=== PATIENT | female | born 1930 | race American Indian/Alaskan Native ===

== ENCOUNTER 2017-12-29 04:06 | Emergency (ER) | payer MEDICARE ==
--- NOTE | 2017-12-29 05:22 | Cat Scan Report ---
FINAL REPORT EXAM: CT HEAD/BRAIN WO CON HISTORY: injury TECHNIQUE: CT imaging is acquired through the brain without contrast. Transaxial reformations are provided. PRIORS: None. FINDINGS: A right frontal scalp hematoma is present without skull fracture. There is a right frontoparietal subdural hemorrhage, which measures up to 3 millimeters in thickness as measured at the level of the foramina of [place]. There is 2 millimeters of midline shift. No transtentorial or tonsillar herniation. Ventricles and CSF spaces are otherwise proportionately enlarged, consistent with parenchymal atrophy. Scattered deep and subcortical white matter hypodense foci are confluent in some areas and are compatible with microvascular angiopathy. No skull fracture. Hyperostosis frontalis. Mastoid air cells are clear. Please see CT face of the same date. IMPRESSION: Right frontoparietal subdural hematoma measures up to 3 millimeters in thickness at the level of the foramina of [place]. There is 1-2 millimeters of right to left midline shift. No transtentorial or tonsillar herniation. Dr. Carter discussed findings of intracranial hemorrhage and C7 fracture with Oliverio Lopez RN at 0415 central Time on 12/29/2017 immediately following the examination.
--- NOTE | 2017-12-29 05:27 | Cat Scan Report ---
FINAL REPORT EXAM: CT CERVICAL SPINE WO CON HISTORY: injury TECHNIQUE: CT imaging is acquired through the cervical spine without contrast. Transaxial, coronal and sagittal reformations are provided. PRIORS: None. FINDINGS: Diffuse demineralization. A fracture extends through the anterior and posterior endplates of C7 on sagittal series 201, images 31-34. There is minimal less than 25 percent vertebral body height loss at this level. No posterior element involvement. No retropulsion of fragments. Cervical lordosis is intact. Remaining vertebral body heights are preserved. There is diffuse at least moderate sequela of disc degeneration throughout the cervical spine. Degenerative ankylosis of the C3-C4 facet joints. Atlanto dens interval and the odontoid process are intact. No perivertebral soft tissue swelling or hematoma identified. Limited soft tissue exam of the visualized neck is unremarkable for carotid calcifications. IMPRESSION: Minimally displaced/depressed C7 fracture extending through the anterior and posterior endplates. No posterior element involvement or gross cervical spine malalignment. No retropulsion. Dr. Carter discussed findings of intracranial hemorrhage and C7 fracture with Oliverio Lopez RN at 0415 central Time on 12/29/2017 immediately following the examination.
--- NOTE | 2017-12-29 05:29 | Cat Scan Report ---
FINAL REPORT EXAM: CT FACIAL BONES WO CON HISTORY: injury TECHNIQUE: CT images are acquired through the face without contrast. Transaxial , coronal and sagittal reformations are provided. PRIORS: Head CT of the same date FINDINGS: No facial fractures. The bony orbits, nasal bones, pterygoid plates, mandible and maxilla are intact. Right frontal scalp hematoma. Edema and fat stranding extends inferiorly over temporal and zygomatic bones and anterior to the malar eminence. Normal spherical shape of the globes status post cataract extraction. Mild right greater than left maxillary sinus mucosal thickening. No significant abnormality within the remaining imaged paranasal sinuses. Mastoid air cells are clear. IMPRESSION: No facial fracture. Right frontal scalp and facial hematomas. Mild right greater than left maxillary sinus mucosal thickening without fluid level.
[2017-12-29 06:05] LABS: Bilirubin,Urine NEG (Negative); Blood,Urine NEG (Negative); Color,Urine Yellow (Yellow); Hyaline Casts,Urine 4 /LPF; Nitrite,Urine NEG (Negative); Protein,Urine <15 mg/dL mg/dL (Negative); Urobilinogen,Urine < 2.0 mg/dL (<2.0); WBC,Urine < 1.0 /HPF (0.0-6.0)
--- NOTE | 2017-12-29 06:19 | Emergency Department Report ---
HPI - General Chief Complaint: Fall Time Seen by Provider: 12/29/17 06:08 - HPI HPI: This is an 87-year-old [place] female presents to the emergency department from home after having a ground-level fall this morning around 2:30 AM. The daughter is bedside and says that she was called by her brother who says that he heard the patient fall. They found a dresser drawer open and the patient had some swelling to the right side of her face. She says that she was on her way to the bathroom. Unknown if there was any loss of consciousness. She has a past medical history of osteoarthritis, diabetes, hypertension. She takes a daily baby aspirin but is not on any blood thinners. Her primary care physician is Dr. Leija at the geriatric clinic at [place]. The patient also has some history of dementia but is highly functional and the daughter says "she basically still takes care of herself." She did not take anything for her symptoms without presentation. She has a mild headache, some neck discomfort and right-sided facial pain and swelling. ED Past Medical Hx - Past Medical History Hx Hypertension: Yes Hx Diabetes: Yes Hx Arthritis: Yes - Surgical History Hx Appendectomy: Yes Additional Surgical History: Exploratory Lap, - Social History Smoking Status: Former Smoker Substance Use Type: None - Medications Home Medications: Home Medications Medication Instructions Recorded Confirmed Last Taken Type Aspirin 81 mg PO DAILY 12/29/17 12/29/17 Unknown History Insulin Regular, Human 6 unit SQ AC 12/29/17 12/29/17 Unknown History Lantus 10 mg SQ HS 12/29/17 12/29/17 Unknown History Toprol Xl 50 mg PO DAILY 12/29/17 12/29/17 Unknown History ED Review of Systems ROS: Stated complaint: FELL HIT RIGHT SIDE OF FACE Other details as noted in HPI Comment: All other systems reviewed and negative Constitutional: denies: chills, fever Eyes: denies: eye pain, eye discharge, vision change ENT: denies: ear pain, throat pain Respiratory: denies: cough, shortness of breath, wheezing Cardiovascular: denies: chest pain, palpitations Gastrointestinal: denies: abdominal pain, nausea, diarrhea Genitourinary: denies: urgency, dysuria, discharge Musculoskeletal: arthralgia. denies: back pain Skin: denies: rash, lesions Neurological: headache. denies: numbness, paresthesias Physical Exam - Physical Exam Vital Signs: Vital Signs 12/29/17 04:31 Temperature 98 F Pulse Rate 74 Respiratory 16 Rate Blood Pressure 137/77 O2 Sat by Pulse 99 Oximetry Physical Exam: GENERAL: The patient is well-developed well-nourished. HENT: Normocephalic. Atraumatic. Patient has moist mucous membranes. EYES: Extraocular motions are intact. Pupils equal reactive to light bilaterally. No nystagmus. NECK: Supple. C-collar in place but when briefly opened she has some mild midline and bilateral paraspinal tenderness to palpation to the middle to lower portion of the neck/cervical spine. No step-off or deformity. CHEST/LUNGS: Clear to auscultation. There is no respiratory distress noted. HEART/CARDIOVASCULAR: Regular. There is no tachycardia. There is no murmur. ABDOMEN: Abdomen is soft, nontender. Patient has normal bowel sounds. There is no abdominal distention. SKIN: Skin is warm and dry. There is some nonpitting right-sided facial swelling. No obvious laceration or abrasions and no bleeding. NEURO: The patient is awake, alert, and oriented. The patient is cooperative. The patient has no focal neurologic deficits. The patient has normal speech. Cranial nerves II through XII grossly intact. GCS of 15. No facial droop. MUSCULOSKELETAL: There is no tenderness or deformity. There is no limitation range of motion. There is no evidence of acute injury. ED Course Vital Signs 12/29/17 04:31 Temperature 98 F Pulse Rate 74 Respiratory 16 Rate Blood Pressure 137/77 O2 Sat by Pulse 99 Oximetry - Consultations Consultation #1: 12/29/17 06:27 Patient was accepted for ER to ER transfer to [facility] by the trauma attending, Dr. Roy. ED Medical Decision Making - Lab Data Result diagrams: 12/29/17 06:39 12/29/17 06:39 - EKG Data -: EKG Interpreted by Ca EKG shows normal: sinus rhythm, axis, intervals, QRS complexes, ST-T waves Rate: normal - EKG Data When compared to previous EKG there are: previous EKG unavailable Interpretation: normal EKG - Radiology Data Radiology results: report reviewed EXAM: CT HEAD/BRAIN WO CON HISTORY: injury TECHNIQUE: CT imaging is acquired through the brain without contrast. Transaxial reformations are provided. PRIORS: None. FINDINGS: A right frontal scalp hematoma is present without skull fracture. There is a right frontoparietal subdural hemorrhage, which measures up to 3 millimeters in thickness as measured at the level of the foramina of [place]. There is 2 millimeters of midline shift. No transtentorial or tonsillar herniation. Ventricles and CSF spaces are otherwise proportionately enlarged, consistent with parenchymal atrophy. Scattered deep and subcortical white matter hypodense foci are confluent in some areas and are compatible with microvascular angiopathy. No skull fracture. Hyperostosis frontalis. Mastoid air cells are clear. Please see CT face of the same date. IMPRESSION: Right frontoparietal subdural hematoma measures up to 3 millimeters in thickness at the level of the foramina of [place]. There is 1-2 millimeters of right to left midline shift. No transtentorial or tonsillar herniation. Dr. Bolaños discussed findings of intracranial hemorrhage and C7 fracture with Oliverio Lopez RN at [facility]5 central Time on 12/29/2017 immediately following the examination. Transcribed By: JABARI Dictated By: JOSE BOLAÑOS MD Electronically Authenticated By: JOSE BOLAÑOS MD Signed Date/Time: 12/29/17 0120 EXAM: CT FACIAL BONES WO CON HISTORY: injury TECHNIQUE: CT images are acquired through the face without contrast. Transaxial , coronal and sagittal reformations are provided. PRIORS: Head CT of the same date FINDINGS: No facial fractures. The bony orbits, nasal bones, pterygoid plates, mandible and maxilla are intact. Right frontal scalp hematoma. Edema and fat stranding extends inferiorly over temporal and zygomatic bones and anterior to the malar eminence. Normal spherical shape of the globes status post cataract extraction. Mild right greater than left maxillary sinus mucosal thickening. No significant abnormality within the remaining imaged paranasal sinuses. Mastoid air cells are clear. IMPRESSION: No facial fracture. Right frontal scalp and facial hematomas. Mild right greater than left maxillary sinus mucosal thickening without fluid level. Transcribed By: JABARI Dictated By: JOSE BOLAÑOS MD Electronically Authenticated By: JOSE BOLAÑOS MD Signed Date/Time: 12/29/17 0126 EXAM: CT CERVICAL SPINE WO CON HISTORY: injury TECHNIQUE: CT imaging is acquired through the cervical spine without contrast. Transaxial, coronal and sagittal reformations are provided. PRIORS: None. FINDINGS: Diffuse demineralization. A fracture extends through the anterior and posterior endplates of C7 on sagittal series 201, images 31-34. There is minimal less than 25 percent vertebral body height loss at this level. No posterior element involvement. No retropulsion of fragments. Cervical lordosis is intact. Remaining vertebral body heights are preserved. There is diffuse at least moderate sequela of disc degeneration throughout the cervical spine. Degenerative ankylosis of the C3-C4 facet joints. Atlanto dens interval and the odontoid process are intact. No perivertebral soft tissue swelling or hematoma identified. Limited soft tissue exam of the visualized neck is unremarkable for carotid calcifications. IMPRESSION: Minimally displaced/depressed C7 fracture extending through the anterior and posterior endplates. No posterior element involvement or gross cervical spine malalignment. No retropulsion. Dr. Bolaños discussed findings of intracranial hemorrhage and C7 fracture with Oliverio Lopez RN at 0415 central Time on 12/29/2017 immediately following the examination. Transcribed By: MB Dictated By: JOSE BOLAÑOS MD Electronically Authenticated By: JOSE BOLAÑOS MD Signed Date/Time: 12/29/17 0124 - Medical Decision Making The patient presents after having a ground-level fall at home this morning. She does not appear to have any obvious deficits or deformities other than some right-sided facial swelling. CT of the face does not show any fractures, dislocations or any acute process. However CT of the brain shows a 3 mm right frontoparietal subdural hematoma with a 1-2 mm [id number] shift. CT of the cervical spine shows a endplate fracture of C7. As we do not have trauma or neurosurgery, I spoke with [facility] who accepted the patient for transfer. The patient and her daughter were updated about the imaging results and the plan for transfer to [place] and they understand and agree. - Differential Diagnosis brain bleed, skull fracture, facial fractures, neck fracture, contusion, he Critical Care Time: No Critical care attestation.: If time is entered above; I have spent that time in minutes in the direct care of this critically ill patient, excluding procedure time. ED Disposition Clinical Impression: Subdural hematoma, Fall from ground level, Hyperglycemia Closed cervical spine fracture Qualifiers: Encounter type: initial encounter Cervical vertebra fracture level: C7 Fracture morphology: unspecified fracture morphology Fracture alignment: displaced Qualified Code(s): S12.600A - Unspecified displaced fracture of seventh cervical vertebra, initial encounter for closed fracture Disposition: DC/TX-70 ANOTHER TYPE HLTHCARE Is pt being admited?: No Condition: Fair Referrals: PRIMARY CARE, [Primary Care Provider] - 3-5 Days Time of Disposition: 09:31
[2017-12-29 06:58] LABS: Basophils % (Auto) 0.5 % (0.0-1.8); Eosinophils % (Auto) 0.4 % (0.0-4.3); Hematocrit 35.2 % (30.3-42.9); Hemoglobin 11.5 gm/dl (10.1-14.3); Lymphocytes # (Auto) 1.3 K/mm3 (1.2-5.4); Lymphocytes % (Auto) 19.9 % (13.4-35.0); Mean Corpuscular HGB Conc 33 % (30-34); Mean Corpuscular Hemoglobin 28 pg (28-32); Mean Corpuscular Volume 85 fl (79-97); Monocytes # (Auto) 0.4 K/mm3 (0.0-0.8); Monocytes % (Auto) 6.1 % (0.0-7.3); Platelet Count 183 K/mm3 (140-440); Red Blood Count 4.14 M/mm3 (3.65-5.03); Red Cell Distribution Width 13.7 % (13.2-15.2)
[2017-12-29 07:11] LABS: BUN/Creatinine Ratio 25; Blood Urea Nitrogen 20 mg/dL (7-17); Calcium 8.7 mg/dL (8.4-10.2); Hemolysis Index 13
[2017-12-29 07:15] VITALS: BP 144/78
[2017-12-29 07:16] LABS: INR 0.95 (0.87-1.13)
[2017-12-29 07:17] LABS: Partial Thromboplastin Time 24.7 Sec. (24.2-36.6)
== END 2017-12-29 07:18 | disposition other institution (70) ==
LOC: ED 04:06
DX: S12.600A Unspecified displaced fracture of seventh cervical vertebra, initial encounter for closed fracture (principal); S06.5X9A Traumatic subdural hemorrhage with loss of consciousness of unspecified duration, initial encounter; W18.30XA Fall on same level, unspecified, initial encounter; Y93.89 Activity, other specified; Y92.89 Other specified places as the place of occurrence of the external cause; Y99.8 Other external cause status; E11.65 Type 2 diabetes mellitus with hyperglycemia; I10 Essential (primary) hypertension
CPT/HCPCS: 36415; 70450; 70486; 72125; 80048; 81001; 82805; 82962; 85025; 85610; 85730; 93005; 93010

== ENCOUNTER 2018-05-14 23:42 | Emergency (ER) | payer MEDICARE ==
[2018-05-15 00:11] VITALS: BP 160/71
--- NOTE | 2018-05-15 00:42 | XRay Report ---
FINAL REPORT EXAM: XR CHEST 1V AP HISTORY: tachycardia TECHNIQUE: A single view of the chest was submitted. There are no previous chest x-rays available for comparison. FINDINGS: The heart size is normal. The thoracic aorta is moderately tortuous. The lungs are negative for infiltrates or congestion. Pleural fluid is not seen. The skeletal structures reveal generalized osteoporosis with extensive arthritic changes in both shoulders. IMPRESSION: No active chest disease.
--- NOTE | 2018-05-15 00:43 | XRay Report ---
FINAL REPORT EXAM: XR PELVIS 1-2V HISTORY: Fall PELVIS PAIN ( ALL OVER PAIN ) TECHNIQUE: A single AP view of the pelvis was submitted. FINDINGS: There is osteoporosis. There is severe end-stage arthritic changes of the right hip joint consisting of severe joint space narrowing and subchondral sclerosis. There are surgical clips overlying the medial aspect of the right femoral head. There is moderate arthritic changes left hip joint. The bony pelvic ring appears intact. The SI joints appear normal. The soft tissues otherwise are unremarkable. IMPRESSION: Osteoporosis. No acute injury identified. Severe end-stage arthritic changes the right hip joint. Moderate arthritic changes of the left hip joint.
[2018-05-15 00:48] LABS: Eosinophils # (Auto) 0.1 K/mm3 (0.0-0.4); Eosinophils % (Auto) 1.8 % (0.0-4.3); Hematocrit 38.8 % (30.3-42.9); Hemoglobin 12.4 gm/dl (10.1-14.3); Lymphocytes # (Auto) 1.9 K/mm3 (1.2-5.4); Mean Corpuscular HGB Conc 32 % (30-34); Mean Corpuscular Volume 81 fl (79-97); Monocytes # (Auto) 0.5 K/mm3 (0.0-0.8); Platelet Count 182 K/mm3 (140-440); Red Blood Count 4.79 M/mm3 (3.65-5.03); Red Cell Distribution Width 14.7 % (13.2-15.2)
[2018-05-15 01:07] LABS: Alanine Aminotransferase 10 units/L (7-56); BUN/Creatinine Ratio 29; Blood Urea Nitrogen 26 mg/dL (7-17); Calcium 9.1 mg/dL (8.4-10.2); Hemolysis Index 2
[2018-05-15 01:17] LABS: Mean Corpuscular Hemoglobin 26 pg (28-32)
--- NOTE | 2018-05-15 01:18 | Cat Scan Report ---
FINAL REPORT EXAM: CT CERVICAL SPINE WO CON HISTORY: Fall TECHNIQUE: Routine axial imaging was obtained of the cervical spine without IV contrast with sagittal and coronal reconstructions. The previous study of 12/29/2017 was reviewed for correlation FINDINGS: There is moderate to severe multilevel disc degeneration throughout the cervical spine. There is no evidence acute fracture. There is a chronic fracture deformity of the superior endplate of C7. There is varying degrees of facet arthropathy changes bilaterally at all levels with associated neural foraminal impingement. The prevertebral soft tissues appear well maintained. There is moderate arthritic changes of the C1-C2 articulation. IMPRESSION: Extensive arthritic changes throughout the cervical spine without acute fracture. Chronic nondisplaced fracture deformity of C7 noted.
--- NOTE | 2018-05-15 01:22 | Cat Scan Report ---
FINAL REPORT EXAM: CT HEAD/BRAIN WO CON HISTORY: Alterted Mental Status TECHNIQUE: Routine axial imaging was obtained of the brain without IV contrast. Comparison is made to the study of 12/29/2017. FINDINGS: There is a large right pre frontal scalp hematoma without skull fracture. Intracranially there is [id number] generalized atrophy. There is diminished attenuation of the periventricular white matter compatible chronic microvascular disease changes. There is no evidence of acute stroke or hemorrhage. The previously noted right frontal parietal subdural hematoma has cleared. The ventricular system is symmetric in size. There are benign basal ganglial calcifications. The sinuses reveal multiple benign-appearing polyps. The mastoid air cells are well pneumatized. IMPRESSION: Large right frontal scalp hematoma without skull fracture. [id number] generalized atrophy with chronic ischemic white matter disease changes. No acute stroke or hemorrhage identified. The previously noted right frontal parietal subdural hematoma has resolved since the previous study Polyps in both maxillary sinuses.
--- NOTE | 2018-05-15 01:57 | Emergency Department Report ---
ED Fall HPI - General Chief Complaint: Fall Stated Complaint: FALL Time Seen by Provider: 05/15/18 00:15 Source: family, EMS Mode of arrival: Stretcher Limitations: Altered Mental Status (history dementia) - History of Present Illness MD Complaint: fall -: hour(s) Fall From: standing Fall Witnessed: yes, by family Place Fall Occurred: home Loss of Consciousness: none Prolonged Down Time?: no Symptoms Prior to Fall: none Location: head Severity: mild Severity scale (0 -10): 2 Quality: aching Context: tripped/slipped Associated Symptoms: denies - Related Data Home Medications Medication Instructions Recorded Confirmed Last Taken Aspirin 81 mg PO DAILY 12/29/17 12/29/17 Unknown Insulin Regular, Human 6 unit SQ AC 12/29/17 12/29/17 Unknown Lantus 10 mg SQ HS 12/29/17 12/29/17 Unknown Toprol Xl 50 mg PO DAILY 12/29/17 12/29/17 Unknown Allergies Allergy/AdvReac Type Severity Reaction Status Date / Time No Known Allergies Allergy Unverified 12/29/17 04:35 ED Review of Systems ROS: Stated complaint: FALL Other details as noted in HPI Other: GENERAL: No weight change, fatigue, weakness, fever, chills, or night sweats SKIN: No changes in skin or hair, no itching, no rashes, no jaundice HEAD: No trauma, headache, or visual changes CARDIAC: No new murmur, chest pain, palpitations, dyspnea on exertion, orthopnea , PND, or edema RESPIRATORY: No shortness of breath, wheeze, cough, sputum production, hemoptysis, pneumonia, asthma, bronchitis, or emphysema GI: No change in appetite, nausea, vomiting, dysphagia, change in bowel frequency, diarrhea, constipation, bleeding, hematemesis, melena, hematochezia, or abdominal pain URINARY: No frequency, urgency, polyuria, dysuria, hematuria, or incontinence MUSCULOSKELETAL: No muscle weakness, joint stiffness, decrease in range of motion, redness, swelling NEUROLOGIC: No loss of sensation, numbness, tingling, tremors, weakness, paralysis, seizures HEMATOLOGIC: No anemia, easy bruising, bleeding, petechiae, or purpura ENDOCRINE: No hot or cold intolerance, sweating, polyuria, polydipsia or, polyphagia no thyroid problems ED Past Medical Hx - Past Medical History Hx Hypertension: Yes Hx Diabetes: Yes Hx Arthritis: Yes - Surgical History Hx Appendectomy: Yes Additional Surgical History: Exploratory Lap, - Social History Smoking Status: Never Smoker Substance Use Type: None - Medications Home Medications: Home Medications Medication Instructions Recorded Confirmed Last Taken Type Aspirin 81 mg PO DAILY 12/29/17 12/29/17 Unknown History Insulin Regular, Human 6 unit SQ AC 12/29/17 12/29/17 Unknown History Lantus 10 mg SQ HS 12/29/17 12/29/17 Unknown History Toprol Xl 50 mg PO DAILY 12/29/17 12/29/17 Unknown History ED Physical Exam - General Limitations: Physical Limitation - Other Other exam information: GENERAL: Patient in no acute distress HEAD: Right scalp hematoma EYES: PERRLA, EOM intact, no scleral icterus, visual ring and acuity wnl NOSE: No tenderness, discharge, sinus tenderness MOUTH: No erythema, bleeding, exudate HEART: Regular rate and rhythm, no murmur, S1-S2 are auscultated, pulses are symmetric LUNGS: bilateral breath sounds. No wheezing, rales, rhonchi ABDOMEN: Normal bowel sounds, no tenderness, no rebound, no guarding, no masses , no CVA tenderness MUSCULOSKELETAL: Normal joint range of motion, no redness, no swelling, no tenderness NEUROLOGIC: Alert, Cranial nerves intact, normal sensation, normal strength, normal gait, no cerebellar deficit, NIHSS 0 SKIN: Skin is warm and dry, no wounds, no rashes ED Course Vital Signs 05/14/18 05/15/18 23:57 00:12 Temperature 98.3 F Pulse Rate 74 Respiratory 14 14 Rate Blood Pressure 160/71 [Left] O2 Sat by Pulse 100 Oximetry ED Medical Decision Making - Lab Data Result diagrams: 05/15/18 00:34 05/15/18 00:34 Laboratory Results - last 24 hr 05/15/18 05/15/18 00:34 00:34 WBC 4.9 RBC 4.79 Hgb 12.4 Hct 38.8 MCV 81 MCH 26 L MCHC 32 RDW 14.7 Plt Count 182 Lymph % (Auto) 39.0 H Norman % (Auto) 10.0 H Eos % (Auto) 1.8 Baso % (Auto) 1.0 Lymph # 1.9 Norman # 0.5 Eos # 0.1 Baso # 0.0 Seg Neutrophils % 48.2 Seg Neutrophils # 2.3 Sodium 139 Potassium 4.2 Chloride 99.9 Carbon Dioxide 27 Anion Gap 16 BUN 26 H Creatinine 0.9 Estimated GFR > 60 BUN/Creatinine Ratio 29 Glucose 163 H Calcium 9.1 Total Bilirubin 0.40 AST 15 ALT 10 Alkaline Phosphatase 81 Total Creatine Kinase 58 Troponin T < 0.010 Total Protein 6.6 Albumin 4.0 Albumin/Globulin Ratio 1.5 - Radiology Data Radiology results: report reviewed - Medical Decision Making Patient comfortable. Family updated with results. Plan discharge with outpatient follow up. Return if symptoms worsen. Critical care attestation.: If time is entered above; I have spent that time in minutes in the direct care of this critically ill patient, excluding procedure time. ED Disposition Clinical Impression: Fall Qualifiers: Encounter type: initial encounter Qualified Code(s): W19.XXXA - Unspecified fall, initial encounter Head contusion Qualifiers: Encounter type: initial encounter Contusion of head detail: scalp Qualified Code(s): S00.03XA - Contusion of scalp, initial encounter Disposition: DC-01 TO HOME OR SELFCARE Is pt being admited?: No Condition: Stable Instructions: Fall Prevention for Older Adults (ED), Scalp Contusion in Adults (ED) Referrals: JOSE ONEILL MD [Primary Care Provider] - 2-3 Days Time of Disposition: 01:56
== END 2018-05-15 02:30 | disposition home or self-care (01) ==
LOC: ED 23:42
DX: S00.03XA Contusion of scalp, initial encounter (principal); I10 Essential (primary) hypertension; E11.9 Type 2 diabetes mellitus without complications; M19.90 Unspecified osteoarthritis, unspecified site; Z79.82 Long term (current) use of aspirin; Z79.4 Long term (current) use of insulin; W18.30XA Fall on same level, unspecified, initial encounter; Y93.89 Activity, other specified; Y99.8 Other external cause status; Y92.89 Other specified places as the place of occurrence of the external cause
CPT/HCPCS: 36415; 70450; 71045; 72125; 72170; 80053; 82550; 84484; 85025

== ENCOUNTER 2018-12-30 07:41 | Emergency (ER) | payer MEDICARE ==
[2018-12-30] MEDS ORDERED: XYLOCAINE 1% 20 mL INFILTRATI ONE (08:01)
[2018-12-30] MEDS ORDERED: NACL 0.9% IR ONE (08:01)
[2018-12-30 08:20] LABS: Hematocrit 34.7 % (30.3-42.9); Hemoglobin 11.8 gm/dl (10.1-14.3); Mean Corpuscular HGB Conc 34 % (30-34); Mean Corpuscular Volume 83 fl (79-97); Platelet Count 212 K/mm3 (140-440); Red Blood Count 4.16 M/mm3 (3.65-5.03); Red Cell Distribution Width 14.1 % (13.2-15.2)
[2018-12-30 08:31] LABS: INR 1.01 (0.87-1.13)
[2018-12-30 08:41] LABS: BUN/Creatinine Ratio 26; Blood Urea Nitrogen 23 mg/dL (7-17); Calcium 8.7 mg/dL (8.4-10.2); Hemolysis Index 6
--- NOTE | 2018-12-30 10:35 | Cat Scan Report ---
Cervical CT without contrast: Fall, trauma, pain. Transverse images are obtained from skull base through T3 with coronal and sagittal 2-D reformatted images. Comparison is made to the prior examination on May 15, 2018. There is no fracture and no displacement identified. The bones are severely demineralized with severe narrowing of most of the interspaces and virtual loss of the C3-4 interspace. There is diffuse degenerative flow for the change and narrowing of the apophyseal joint. There is uncal spurring at virtually every level with mild bilateral foraminal stenoses at C2-3, moderate stenosis on the right at C4-5, mild on the right at C5-6, moderate on the left at C6-7. There is no spinal stenosis appreciated. These findings are unchanged prior exam. No soft tissue swelling. Impression: Severe degenerative bone, disc, and areas of foraminal stenoses as detailed above. No acute finding.
--- NOTE | 2018-12-30 10:38 | Cat Scan Report ---
CT head without contrast: Trauma, facial laceration. Unenhanced axial images demonstrates mild prophylactic consistent with stated age. There is moderate decreased periventricular white matter change. The ventricles are normal in size, contour, and position. No focal intracranial lesion noted. No extradural collection. There is a large left maxillary retention cyst and polyps or retention cysts in the right maxillary sinus. There is no fracture. Compared to prior examination of May 15, 2018 there are no significant changes. Impression: 1. Senescent changes. 2. Stable maxillary polyps/retention cysts.
[2018-12-30] MEDS ORDERED: HALDOL IM STA (11:11)
--- NOTE | 2018-12-30 11:12 | XRay Report ---
Portable chest: Dementia, trauma The aorta is tortuous. Heart is normal in size. The lungs are clear. No fracture deformity identified. Degenerative bilateral shoulder changes noted. No significant change compared prior exam of May 15, 2018. Impression: No acute findings.
--- NOTE | 2018-12-30 11:32 | XRay Report ---
Portable pelvis: Trauma, pain. AP view demonstrates a severely degenerative right hip with bone on bone joint space. The femoral head is sclerotic at its articulation with large subchondral cysts within the femoral head and acetabulum. There is good alignment. No fracture noted. The remainder of the AP pelvis is unremarkable. These findings are generally unchanged compared to May 15, 2018. Also of note are degenerative changes of the lower lumbar spine. Impression: No acute finding.
[2018-12-30] MEDS ORDERED: BOOSTRIX IM ONE (12:14)
[2018-12-30] MEDS ORDERED: ATIVAN IM STA (12:14)
--- NOTE | 2018-12-30 12:23 | Emergency Department Report ---
ED General Adult HPI - General Chief complaint: Fall Stated complaint: FALL/LACERATION ON FOREHEAD Time Seen by Provider: 12/30/18 08:02 Source: patient, family, EMS (ems notes not available at time of chart dictation), RN notes reviewed, old records reviewed Mode of arrival: Stretcher Limitations: Physical Limitation, Other (patient is demented. Patient is a poor historian. History obtained from family) - History of Present Illness Initial comments: This is an 88-year-old female, who follows with an outpatient geriatric clinic at [place], with a history of dementia, who is brought to the hospital by EMS for fall. As per verbal report from family, who provides all the history, the fall was unwitnessed. However, they indicate the patient is at her mental status baseline. They deny fevers, chills, lethargy, irritability. They reports patient is supposed to walk with a walker but secondary to her dementia, is noncompliant with her walker. She has follow-up on Sunday with her primary care doctor. The patient has a facial laceration, and the family can't recall her last tetanus vaccination. They deny other complaints. The patient is intermittently verbal, and makes no complaints. Family reports that patient is at her normal mental status. -: This morning Radiation: other Severity scale (0 -10): 0 Quality: other Consistency: other Improves with: other Worsens with: other Associated Symptoms: other (facial laceration, fall) - Related Data Home Medications Medication Instructions Recorded Confirmed Last Taken Aspirin 81 mg PO DAILY 12/29/17 12/29/17 Unknown Insulin Regular, Human 6 unit SQ AC 12/29/17 12/29/17 Unknown Lantus 10 mg SQ HS 12/29/17 12/29/17 Unknown Toprol Xl 50 mg PO DAILY 12/29/17 12/29/17 Unknown Previous Rx's Medication Instructions Recorded Last Taken Type Bacitracin Zinc [Antibiotic] 28.4 gm TP BID #1 oint...g. 12/30/18 Unknown Rx Allergies Allergy/AdvReac Type Severity Reaction Status Date / Time No Known Allergies Allergy Unverified 12/29/17 04:35 ED Review of Systems ROS: Stated complaint: FALL/LACERATION ON FOREHEAD Other details as noted in HPI Comment: as per family Constitutional: denies: fever ENT: denies: epistaxis Respiratory: denies: cough Cardiovascular: denies: chest pain Gastrointestinal: denies: nausea, vomiting Genitourinary: denies: frequency Skin: other (facial laceration). denies: lesions Neurological: other (baseline dementia) ED Past Medical Hx - Past Medical History Hx Hypertension: Yes Hx Diabetes: Yes Hx Arthritis: Yes - Surgical History Hx Appendectomy: Yes Additional Surgical History: Exploratory Lap, - Social History Smoking Status: Unknown if ever smoked - Medications Home Medications: Home Medications Medication Instructions Recorded Confirmed Last Taken Type Aspirin 81 mg PO DAILY 12/29/17 12/29/17 Unknown History Insulin Regular, Human 6 unit SQ AC 12/29/17 12/29/17 Unknown History Lantus 10 mg SQ HS 12/29/17 12/29/17 Unknown History Toprol Xl 50 mg PO DAILY 12/29/17 12/29/17 Unknown History Bacitracin Zinc [Antibiotic] 28.4 gm TP BID #1 oint...g. 12/30/18 Unknown Rx ED Physical Exam - General Limitations: Physical Limitation, Other (patient is demented) General appearance: in no apparent distress - Head Head exam: Present: normocephalic, other (results temporal laceration, 1.3 cm.) - Eye Eye exam: Present: normal appearance, EOMI. Absent: nystagmus - ENT ENT exam: Present: normal exam, normal orophraynx, mucous membranes moist, normal external ear exam, other (original nasal septal hematoma. There is no hemotympanum) - Neck Neck exam: Present: normal inspection, full ROM. Absent: tenderness, meningismus - Respiratory Respiratory exam: Present: normal lung sounds bilaterally. Absent: respiratory distress, wheezes, rales, rhonchi, stridor, chest wall tenderness, accessory muscle use, decreased breath sounds, prolonged expiratory - Cardiovascular Cardiovascular Exam: Present: regular rate, normal rhythm, normal heart sounds. Absent: bradycardia, tachycardia, irregular rhythm, systolic murmur, diastolic murmur, rubs, gallop - GI/Abdominal GI/Abdominal exam: Present: soft. Absent: distended, tenderness, guarding, rebound, rigid, pulsatile mass - Extremities Exam Extremities exam: Present: normal inspection, full ROM, other (2+ pulses noted in the bilateral upper, lower extremities. Compartments soft. No long bony tenderness. The pelvis is stable.). Absent: calf tenderness - Back Exam Back exam: Present: normal inspection, full ROM. Absent: tenderness, CVA tenderness (R), paraspinal tenderness, vertebral tenderness - Neurological Exam Neurological exam: Present: alert, other (moving 4 extremities. There is no facial droop. Detailed neurologic examination not possible secondary to underlying dementia) - Psychiatric Psychiatric exam: Present: anxious - Skin Skin exam: Present: warm, dry, intact, normal color, other (right-sided facial laceration) ED Course Vital Signs 12/30/18 12/30/18 12/30/18 09:10 09:11 14:04 Temperature 98.7 F Pulse Rate 86 89 Respiratory 18 18 17 Rate Blood Pressure 153/71 126/66 [Left] O2 Sat by Pulse 100 100 98 Oximetry - Reevaluation(s) Reevaluation #1: 12/30/18 12:25 Differential diagnosis, including not limited to: Intracranial injury, cervical spine injury, pneumonia, urinary tract infection, facial laceration, underlying dementia Assessment and plan: 88-year-old female status post unwitnessed fall. The patient is afebrile with reassuring vital signs, and her family corroborates no concerning symptoms on review of systems. They have given verbal consent for sedation, to allow for acquisition of urinalysis, and laceration repair. Objective laboratory testing unremarkable, and objective imaging studies are essentially unremarkable for acute disease, and unchanged from prior. Patient has follow-up with the primary physician at the end of the week. Reevaluation #2: 12/30/18 14:17 Laceration repaired.No events in the emergency department. Urinalysis not consistent with urinary tract infection. Daughter feels safe to take the patient home. - Laceration /Wound Repair Right Lower Face Wound Location: head Wound Length (cm): 1 Wound's Depth, Shape: superficial, linear Wound Explored: clean Irrigated w/ Saline (ccs): 250 Betadine Prep?: Yes Anesthesia: 1% Lidocaine Volume Anesthetic (ccs): 5 Wound Debrided: minimal Suture Size/Type: 5:0 Number of Sutures: 2 Layer Closure?: No Sterile Dressing Applied?: Yes ED Medical Decision Making - Lab Data Result diagrams: 12/30/18 08:11 12/30/18 08:11 Vital Signs - 24 hr 12/30/18 12/30/18 09:10 09:11 Temperature 98.7 F Pulse Rate 86 Respiratory 18 18 Rate Blood Pressure 153/71 [Left] O2 Sat by Pulse 100 100 Oximetry Lab Results 12/30/18 12/30/18 12/30/18 Range/Units 08:11 08:11 08:11 WBC 5.7 (4.5-11.0) K/mm3 RBC 4.16 (3.65-5.03) M/mm3 Hgb 11.8 (10.1-14.3) gm/dl Hct 34.7 (30.3-42.9) % MCV 83 (79-97) fl MCH 28 (28-32) pg MCHC 34 (30-34) % RDW 14.1 (13.2-15.2) % Plt Count 212 (140-440) K/mm3 PT 13.7 (12.2-14.9) Sec. INR 1.01 (0.87-1.13) Sodium 139 (137-145) mmol/L Potassium 4.1 (3.6-5.0) mmol/L Chloride 103.2 (98-107) mmol/L Carbon Dioxide 26 (22-30) mmol/L Anion Gap 14 mmol/L BUN 23 H (7-17) mg/dL Creatinine 0.9 (0.7-1.2) mg/dL Estimated GFR > 60 ml/min BUN/Creatinine Ratio 26 % Glucose 211 H (65-100) mg/dL Calcium 8.7 (8.4-10.2) mg/dL Magnesium 2.00 (1.7-2.3) mg/dL Total Creatine Kinase 130 (30-135) units/L - EKG Data -: EKG Interpreted by Ar EKG shows normal: sinus rhythm Rate: normal - EKG Data 12/30/18 12:26 Limited by motion artifact. Sinus, 86 bpm, left axis deviation, QTC prolonged, motion artifact, not consistent with ST elevation myocardial infarction, and compared to prior EKG from December 2017, appears to be no significant changes. - Radiology Data Radiology results: pending, report reviewed, image reviewed Noncontrast CT scan of the brain, cervical spine negative for acute disease. DJD noted. X-ray of the pelvis, chest negative for acute disease. DJD noted. No acute findings noted. Critical care attestation.: If time is entered above; I have spent that time in minutes in the direct care of this critically ill patient, excluding procedure time. ED Disposition Clinical Impression: Facial laceration Disposition: DC-01 TO HOME OR SELFCARE Is pt being admited?: No Does the pt Need Aspirin: No Condition: Stable Instructions: Suture Care (ED), Laceration (ED) Additional Instructions: Continue outpatient medications. Wash laceration with gentle soap and water once every 12- 24 hrs. Sutures should be taken out in 4-5 days. Patient may follow up with her primary care doctor, urgent care center, or return to the emergency room to have the sutures removed. Please return to the emergency room right away with recurrent fall, lethargy, irritability, projectile vomiting, new, worsening or different symptoms. Referrals: FRANCHESCA BENSON MD [Primary Care Provider] - 3-5 Days
[2018-12-30 14:03] LABS: Bilirubin,Urine NEG (Negative); Blood,Urine NEG (Negative); Color,Urine Straw (Yellow); Protein,Urine <15 mg/dL mg/dL (Negative); Urobilinogen,Urine < 2.0 mg/dL (<2.0); WBC,Urine < 1.0 /HPF (0.0-6.0)
[2018-12-30 14:05] VITALS: BP 126/66
[2018-12-30] MEDS ORDERED: TRIPLE ANTIBIOTIC TP ONE ×2 (14:27→14:28)
== END 2018-12-30 16:16 | disposition home or self-care (01) ==
LOC: ED 07:41
DX: S01.81XA Laceration without foreign body of other part of head, initial encounter (principal); I10 Essential (primary) hypertension; E11.9 Type 2 diabetes mellitus without complications; M19.90 Unspecified osteoarthritis, unspecified site; Z79.82 Long term (current) use of aspirin; Z79.4 Long term (current) use of insulin; W18.30XA Fall on same level, unspecified, initial encounter; Y93.89 Activity, other specified; Y92.89 Other specified places as the place of occurrence of the external cause; Y99.8 Other external cause status
CPT/HCPCS: 12011; 36415; 70450; 71045; 72125; 72170; 80048; 81001; 82550; 83735; 85027; 85610; 87086; 90471; 90715; 93005; 93010; 96372; 99284; J1630; J2060; A6250

== ENCOUNTER 2019-01-28 19:01 | Emergency (ER) | payer MEDICARE ==
[2019-01-28 19:18] VITALS: BP 133/71
--- NOTE | 2019-01-28 19:19 | Emergency Department Report ---
Blank Doc - Documentation Documentation: This is a 88 y.o. female that presents with low back pain. Patient daughter frankie perez patient has dementia and unable to explain symptoms. She heard a loud scream and patient was grabbing at lower back. History of DM, HTN, osteoarthritis, and dementia. Ordered x-ray of L-spine. Further evaluation.
== END 2019-01-28 19:27 | disposition left against medical advice (07) ==
LOC: ED 19:01
DX: M54.5 Low back pain (principal); Z53.21 Procedure and treatment not carried out due to patient leaving prior to being seen by health care provider

== ENCOUNTER 2019-03-18 08:53 | Emergency (ER) | payer MEDICARE ==
[2019-03-18 10:00] LABS: Eosinophils % (Auto) 1.1 % (0.0-4.3); Hemoglobin 12.1 gm/dl (10.1-14.3); Lymphocytes # (Auto) 1.1 K/mm3 (1.2-5.4); Lymphocytes % (Auto) 29.5 % (13.4-35.0); Mean Corpuscular HGB Conc 33 % (30-34); Mean Corpuscular Volume 84 fl (79-97); Monocytes # (Auto) 0.4 K/mm3 (0.0-0.8); Monocytes % (Auto) 11.8 % (0.0-7.3); Platelet Count 194 K/mm3 (140-440); Red Blood Count 4.42 M/mm3 (3.65-5.03); Red Cell Distribution Width 14.9 % (13.2-15.2)
[2019-03-18 10:14] LABS: INR 0.94 (0.87-1.13); Partial Thromboplastin Time 24.4 Sec. (24.2-36.6)
[2019-03-18 10:33] LABS: BUN/Creatinine Ratio 59; Blood Urea Nitrogen 47 mg/dL (7-17)
[2019-03-18 10:34] LABS: Alanine Aminotransferase 11 units/L (7-56); Albumin 3.7 g/dL (3.9-5); Hemolysis Index 6
--- NOTE | 2019-03-18 10:39 | Cat Scan Report ---
CT HEAD WITHOUT CONTRAST: HISTORY: Head injury. TECHNIQUE: Sequential CT images without contrast. FINDINGS: Compared to 12/30/18. There is mild right frontal soft tissue swelling. Images obtained show bilateral prominence of the sulci and ventricles. There are no abnormal intra- or extra-axial blood or fluid collections. There are no focal masses or evidence of mass effect. The bar[place] white matter differentiation appears within normal limits. Regions of periventricular decreased attenuation are consistent with microangiopathic ischemic disease. The posterior fossa structures including the fourth ventricle, cerebellum, and brainstem appear normal. IMPRESSION: Right frontal soft tissue swelling. Evidence of atrophy and microangiopathic ischemic disease. No acute intracranial process noted.
--- NOTE | 2019-03-18 10:41 | Cat Scan Report ---
CT SCAN OF THE CERVICAL SPINE: HISTORY: Fall. TECHNIQUE: Contiguous 1.25 mm axial images of the cervical spine were obtained. Sagittal and coronal reformatted images. FINDINGS: Osteopenia is evident. There is moderate to severe multilevel degenerative disc disease and facet arthropathy. All levels are affected. C2-3 appears to be the most affected level. There is no evidence for displaced fracture, subluxation or bone lesion. The paravertebral soft tissues are unremarkable. IMPRESSION: Osteopenia. Diffuse degenerative changes. No acute injury is identified.
--- NOTE | 2019-03-18 10:46 | XRay Report ---
AP PELVIS: HISTORY: pain. Osteopenia is evident. No obvious pelvic fracture or diastasis is identified on x-ray. Severe osteoarthritis with complete loss of joint space is noted in the right hip. Moderate degenerative changes in the left hip. IMPRESSION: Osteopenia. Advanced degenerative changes in the right hip. No obvious pelvic fracture or diastasis.
--- NOTE | 2019-03-18 11:51 | Emergency Department Report ---
ED General Adult HPI - General Chief complaint: Fall Stated complaint: GLF Time Seen by Provider: 03/18/19 09:41 Source: EMS Mode of arrival: Stretcher Limitations: No Limitations - History of Present Illness Initial comments: The patient presents to the emergency department for a chief complaint of a fall that occurred this morning. The patient has a history of dementia but is able to answer questions. Patient also complains of neck pain status post fall. Patient denies chest pain, shortness breath, abdominal pain. Patient does complain of some hip pain but cannot localize it. -: Sudden Location: head, pelvis Severity scale (0 -10): 3 Quality: aching Consistency: constant Improves with: none Worsens with: none Associated Symptoms: denies other symptoms Treatments Prior to Arrival: none - Related Data Home Medications Medication Instructions Recorded Confirmed Last Taken Aspirin 81 mg PO DAILY 12/29/17 12/29/17 Unknown Insulin Regular, Human 6 unit SQ AC 12/29/17 12/29/17 Unknown Lantus 10 mg SQ HS 12/29/17 12/29/17 Unknown Toprol Xl 50 mg PO DAILY 12/29/17 12/29/17 Unknown Previous Rx's Medication Instructions Recorded Last Taken Type Bacitracin Zinc [Antibiotic] 28.4 gm TP BID #1 oint...g. 12/30/18 Unknown Rx Allergies Allergy/AdvReac Type Severity Reaction Status Date / Time No Known Allergies Allergy Verified 03/18/19 09:28 ED Review of Systems ROS: Stated complaint: GLF Other details as noted in HPI Comment: All other systems reviewed and negative Constitutional: denies: chills, fever Eyes: denies: eye pain, eye discharge, vision change ENT: denies: ear pain, throat pain Respiratory: denies: cough, shortness of breath, wheezing Cardiovascular: denies: chest pain, palpitations Endocrine: no symptoms reported Gastrointestinal: denies: abdominal pain, nausea, diarrhea Genitourinary: denies: urgency, dysuria, discharge Musculoskeletal: denies: back pain, joint swelling, arthralgia Skin: denies: rash, lesions Neurological: denies: headache, weakness, paresthesias Psychiatric: denies: anxiety, depression Hematological/Lymphatic: denies: easy bleeding, easy bruising ED Past Medical Hx - Past Medical History Previous Medical History?: Yes Hx Hypertension: Yes Hx Diabetes: Yes Hx Arthritis: Yes Hx Dementia: Yes - Surgical History Past Surgical History?: Yes Hx Appendectomy: Yes Additional Surgical History: Exploratory Lap, - Social History Smoking Status: Unknown if ever smoked Substance Use Type: None - Medications Home Medications: Home Medications Medication Instructions Recorded Confirmed Last Taken Type Aspirin 81 mg PO DAILY 12/29/17 12/29/17 Unknown History Insulin Regular, Human 6 unit SQ AC 12/29/17 12/29/17 Unknown History Lantus 10 mg SQ HS 12/29/17 12/29/17 Unknown History Toprol Xl 50 mg PO DAILY 12/29/17 12/29/17 Unknown History Bacitracin Zinc [Antibiotic] 28.4 gm TP BID #1 oint...g. 12/30/18 Unknown Rx ED Physical Exam - General Limitations: No Limitations General appearance: alert, in no apparent distress, other (dementia) - Head Head exam: Present: atraumatic, normocephalic, other (laceration to the posterior aspect of the scalp that does not require sutures) - Eye Eye exam: Present: normal appearance, PERRL, EOMI - ENT ENT exam: Present: mucous membranes moist - Neck Neck exam: Present: normal inspection - Respiratory Respiratory exam: Present: normal lung sounds bilaterally. Absent: respiratory distress - Cardiovascular Cardiovascular Exam: Present: regular rate, normal rhythm. Absent: systolic murmur, diastolic murmur, rubs, gallop - GI/Abdominal GI/Abdominal exam: Present: soft, normal bowel sounds. Absent: distended, tenderness - Extremities Exam Extremities exam: Present: normal inspection - Back Exam Back exam: Present: normal inspection - Neurological Exam Neurological exam: Present: alert, CN II-XII intact. Absent: motor sensory deficit - Psychiatric Psychiatric exam: Present: normal affect, normal mood - Skin Skin exam: Present: warm, dry, intact, normal color. Absent: rash ED Course Vital Signs 03/18/19 03/18/19 03/18/19 08:53 09:22 09:30 Temperature 97.5 F L Pulse Rate 89 84 Respiratory 16 14 13 Rate Blood Pressure 130/67 Blood Pressure 132/86 [Right] O2 Sat by Pulse 98 99 Oximetry 03/18/19 03/18/19 03/18/19 09:46 10:21 10:30 Temperature Pulse Rate 86 76 89 Respiratory 18 12 13 Rate Blood Pressure 146/99 137/90 137/90 Blood Pressure [Right] O2 Sat by Pulse 99 96 96 Oximetry 03/18/19 03/18/19 10:45 11:00 Temperature Pulse Rate 80 85 Respiratory 13 14 Rate Blood Pressure 137/81 142/92 Blood Pressure [Right] O2 Sat by Pulse 98 97 Oximetry ED Medical Decision Making - Lab Data Result diagrams: 03/18/19 09:49 03/18/19 09:49 Lab Results 03/18/19 03/18/19 03/18/19 Range/Units 09:49 09:49 09:49 WBC 3.7 L (4.5-11.0) K/mm3 RBC 4.42 (3.65-5.03) M/mm3 Hgb 12.1 (10.1-14.3) gm/dl Hct 37.0 (30.3-42.9) % MCV 84 (79-97) fl MCH 27 L (28-32) pg MCHC 33 (30-34) % RDW 14.9 (13.2-15.2) % Plt Count 194 (140-440) K/mm3 Lymph % (Auto) 29.5 (13.4-35.0) % Bland % (Auto) 11.8 H (0.0-7.3) % Eos % (Auto) 1.1 (0.0-4.3) % Baso % (Auto) 1.0 (0.0-1.8) % Lymph # 1.1 L (1.2-5.4) K/mm3 Bland # 0.4 (0.0-0.8) K/mm3 Eos # 0.0 (0.0-0.4) K/mm3 Baso # 0.0 (0.0-0.1) K/mm3 Seg Neutrophils % 56.6 (40.0-70.0) % Seg Neutrophils # 2.1 (1.8-7.7) K/mm3 PT 13.1 (12.2-14.9) Sec. INR 0.94 (0.87-1.13) APTT 24.4 (24.2-36.6) Sec. Sodium 141 (137-145) mmol/L Potassium 4.5 (3.6-5.0) mmol/L Chloride 104.6 (98-107) mmol/L Carbon Dioxide 25 (22-30) mmol/L Anion Gap 16 mmol/L BUN 47 H (7-17) mg/dL Creatinine 0.8 (0.7-1.2) mg/dL Estimated GFR > 60 ml/min BUN/Creatinine Ratio 59 % Glucose 187 H (65-100) mg/dL Calcium 9.0 (8.4-10.2) mg/dL Total Bilirubin 0.20 (0.1-1.2) mg/dL AST 16 (5-40) units/L ALT 11 (7-56) units/L Alkaline Phosphatase 110 (35-129) units/L Total Protein 7.0 (6.3-8.2) g/dL Albumin 3.7 L (3.9-5) g/dL Albumin/Globulin Ratio 1.1 % - Medical Decision Making The patient refuses multiple times to provide a urine via catheterization via clean catch. Critical care attestation.: If time is entered above; I have spent that time in minutes in the direct care of this critically ill patient, excluding procedure time. ED Disposition Clinical Impression: Fall, Abrasion, Neck pain, Closed head injury Disposition: DC-01 TO HOME OR SELFCARE Is pt being admited?: No Does the pt Need Aspirin: No Condition: Stable Instructions: Fall Prevention (ED) Additional Instructions: Return if worse Referrals: [facility] [Other] - 3-5 Days [facility] [Provider Group] - 3-5 Days [facility] [Provider Group] - 3-5 Days Time of Disposition: 12:18
[2019-03-18 12:53] VITALS: BP 131/69
== END 2019-03-18 12:30 | disposition home or self-care (01) ==
LOC: ED 08:53
DX: S01.01XA Laceration without foreign body of scalp, initial encounter (principal); S10.91XA Abrasion of unspecified part of neck, initial encounter; I10 Essential (primary) hypertension; E11.9 Type 2 diabetes mellitus without complications; M19.90 Unspecified osteoarthritis, unspecified site; Z90.49 Acquired absence of other specified parts of digestive tract; Z79.82 Long term (current) use of aspirin; Z79.4 Long term (current) use of insulin; W18.39XA Other fall on same level, initial encounter; Y93.89 Activity, other specified; Y92.89 Other specified places as the place of occurrence of the external cause; Y99.8 Other external cause status
CPT/HCPCS: 36415; 70450; 72125; 72170; 80053; 85025; 85610; 85730; 99284